=== PATIENT | female | born 2000 | race Caucasian/White ===

== ENCOUNTER 2024-01-25 11:02 | Emergency (ER) | payer MEDICAID, SELFPAY ==
[2024-01-25 12:05] VITALS: BP 139/89; PULSE 93; RESP 21; TEMP 36.7; O2SAT 98; BMI 42.7
[2024-01-25 12:14] LABS: UTC Strep Screen (Rapid) Positive (Negative)
--- NOTE | 2024-01-25 12:14 | ED_ITS ---
Discharge Plan Prescriptions Prescriptions: New penicillin V potassium 500 mg tablet 500 mg PO BID Qty: 20 0RF No Action glyburide 5 mg tablet 5 mg PO DAILY sertraline 100 mg tablet 100 mg PO DAILY atenolol 50 mg tablet 50 mg PO DAILY hydrochlorothiazide 12.5 mg tablet 12.5 mg PO DIRECTED Ozempic 2 mg/dose (8 mg/3 mL) pen injector 2 mg SQ DIRECTED Referrals Follow up/Referrals: Mira Conway APRN [Primary Care Provider] - See instructions Activity Restrictions/Add. Instructions Additional Instructions/Restrictions: *Monitor Temp, Over the counter Motrin or Tylenol as directed/as needed Tylenol every 4 hours and Motrin every 6 hours (as long as your family doctor has told you that you can take it) for fever or pain. and straight to ER if unable to lower temp less than 101.0 after medication given *Warm salt water gargles may help to soothe the throat *Throat Lozenges? *Warm fluids like tea with honey may help to soothe the throat? *Sleep elevated *Humidifier/Vaporizer *If you did not take Penicillin shot or was unable to, start taking antibiotic immediately and make sure that you take it for the FULL length of time although you should start to feel better in 24-48 hours *change toothbrush and toothpaste 24-48 hours after starting to take antibiotics so you do not reinfect yourself Monitor Temp. Tylenol and/or Ibuprofen as needed. ER if fever is no less than 101 despite alternating Tylenol and Ibuprofen * Encourage fluids, water, Gatorade, powerade, pedialyte if infant/toddler/or child *Cold fluids, popsicles and ice cream may feel good on his throat Follow up IMMEDIATELY for new or worsening symptoms or no Noticeable improvement over the next 48-72 hours. 911 for difficulty breathing or swallowing Clinical Impressions Clinical Impression: Strep throat Instructions Patient Instructions: DI for Strep Throat, Strep Throat Print Language Print Language: Slovak Discharge ED Provider: Aileen Garcia [facility] HPI General Stated complaint: fever, sore throat, ear ache Mode of Arrival: Ambulatory Source of Information: Patient Time Seen by Provider: 01/25/24 12:14 Description of Symptoms (Recalled from Triage Doc. by RN): SORE THROAT, FEVER HEENT Symptoms (Recalled from RN notes): Yes Resp Symptoms (Recalled from RN notes): No Skin Symptoms (Recalled from RN notes): No MS Symptoms (Recalled from RN notes): No Functional Status (Recalled from RN notes): WNL History of Present Illness Provider Complaint: Patient states that she has been having sore throat and fever States feels like she may have strep throat Related Data Home Medications ?Medication ?Instructions ?Recorded ?Confirmed atenolol 50 mg tablet 50 mg PO DAILY 01/25/24 01/25/24 glyburide 5 mg tablet 5 mg PO DAILY 01/25/24 01/25/24 hydrochlorothiazide 12.5 mg tablet 12.5 mg PO DIRECTED 01/25/24 01/25/24 semaglutide 2 mg/dose (8 mg/3 mL) 2 mg SQ DIRECTED 01/25/24 01/25/24 subcutaneous pen injector (Ozempic) sertraline 100 mg tablet 100 mg PO DAILY 01/25/24 01/25/24 Previous Rx's ?Medication ?Instructions ?Recorded penicillin V potassium 500 mg 500 mg PO BID #20 tabs 01/25/24 tablet Allergies Allergy/AdvReac Type Severity Reaction Status Date / Time tioconazole (From Monistat 1 Allergy Rash Verified 01/25/24 12:09 (tioconazole)) bismuth subsalicylate (From AdvReac Other Verified 01/25/24 12:08 Pepto-Bismol) Worker's Comp Is this a Worker's Comp case?: No [facility] Disclaimer: The information contained in this section may have been updated after the patient was seen, as this information can be updated by other users. Social History Smoking Status: Unknown if ever smoked alcohol intake: never current occupational status: employed Travel in the last 8 weeks: None ROS Obtained: Yes All systems reviewed & no additional complaints except as documented and Yes Systems reviewed as appropriate & no additional complaints except as documented Constitutional Constitutional: Reports system reviewed and no additional complaints, except as documented and Reports as per HPI ENT Ears, Nose, Mouth, and Throat: Reports system reviewed and no additional complaints, except as documented, Reports as per HPI and Reports sore throat Cardiovascular Cardiovascular: Reports system reviewed and no additional complaints, except as documented and Reports as per HPI Respiratory Respiratory: Reports system reviewed and no additional complaints, except as documented and Reports as per HPI Gastrointestinal Gastrointestingal: Reports system reviewed and no additional complaints, except as documented and as per HPI Physical Exam General General appearance: alert and in no apparent distress ENT ENT exam: Present mucous membranes moist Expanded ENT Exam Throat exam: Present tonsillar erythema and tonsillar exudate Respiratory Respiratory exam: Present normal lung sounds bilaterally; Absent respiratory distress or wheezes Cardiovascular Cardiovascular exam: Present regular rate, normal rhythm and normal heart sounds Abdominal Exam Abdominal exam: Present soft and normal bowel sounds; Absent distention or tenderness Neurological Exam Neurological exam: Present alert, oriented X3 and normal gait Medical Decision Making Medical Records Screening: Per USPSTF and CDC recommendations, given the prevalence of disease in our region, it is our hospital?s policy to screen for HIV and viral Hepatitis for all patients aged 18 and over and those with ongoing risk factors. [place] Inquiry Pt receiving controlled substance: No Der[place] was queried for this patient: No Vital Signs: 01/25/24 12:05 Temperature 98.1 F Temperature Source Oral Pulse Rate [Left Radial] 93 H Respiratory Rate 21 Blood Pressure [Left Arm] 139/89 Blood Pressure Mean [Left Arm] 105 02 Sat by Pulse Oximetry 98 Lab Data Lab results reviewed: Yes I reviewed the patient's lab results.
[2024-01-25 12:23] VITALS: BP 139/89; PULSE 93; RESP 21; TEMP 36.7
== END 2024-01-25 12:28 | disposition home or self-care (01) ==
PROVIDERS: Emergency Provider Nurse Practitioner; PCP Nurse Practitioner Family
DX: J02.0 Streptococcal pharyngitis (principal)
CPT/HCPCS: 87880; 99213; G0381